=== PATIENT | female | born 1965 | race African-American/Black ===

== ENCOUNTER 2018-07-10 15:03 | Emergency (ER) | payer MEDICAID, OTHER ==
[~2018-07-10] VITALS: Ht 165.1 cm; Wt 86.0 kg
[~2018-07-10 15:03] MED LIST: AMLO2.5T45 PO; ATEN-42 PO; ATOR20TA65 PO; FERR-63 PO; HYDR25TA PO; MELO-106 PO; POTA10TA11 PO; TRAM50TA3 PO
[2018-07-10 15:14] VITALS: BP 155/91
== END 2018-07-10 17:06 | disposition left against medical advice (07) ==
LOC: ER 15:03
DX: R07.9 Chest pain, unspecified (principal); Z53.21 Procedure and treatment not carried out due to patient leaving prior to being seen by health care provider

== ENCOUNTER 2019-03-02 10:16 | Emergency (ER) | payer MEDICAID ==
[~2019-03-02] VITALS: Ht 167.6 cm; Wt 90.0 kg
[2019-03-02] MEDS ORDERED: SODIUM CHLORIDE 0.9% 1,000 ML IV ONE (11:10)
[2019-03-02 12:19] LABS: BASOPHILS % 0.9 % (0.0-2.0); EOSINOPHILS % 0.9 % (0.0-5.0); HEMOGLOBIN. 12.7 g/dL (12.0-16.0); LYMPHOCYTES % 23.7 % (20.0-50.0); MEAN CORPUSCULAR HEMOGLOBIN 30.3 pg (28.0-32.0); MEAN CORPUSCULAR VOLUME 88.5 fL (81.0-99.0); MEAN PLATELET VOLUME 9.3 fl (7.4-10.4); MONOCYTES % 5.5 % (2.0-8.0); PLATELET 293 x1000/uL (130-400); RED BLOOD CELL COUNT 4.18 mill/uL (4.2-5.4); RED CELL DISTRIBUTION WIDTH 14.1 % (11.6-14.6)
[2019-03-02 13:29] LABS: CHLORIDE 100 mEq/L (98-107)
[2019-03-02 13:34] LABS: ETHANOL BLOOD < 10 mg/dL
[2019-03-02 14:54] LABS: CLARITY URINE CLEAR (CLEAR); COLOR URINE YELLOW (YELLOW); KETONES URINE NEGATIVE (NEGATIVE); LEUKOCYTE ESTERASE URINE TRACE (NEGATIVE); NITRITE URINE NEGATIVE (NEGATIVE); OCCULT BLOOD URINE NEGATIVE (NEGATIVE); PROTEIN URINE NEGATIVE (NEGATIVE); UROBILINOGEN URINE 0.2 E.U./dL (0.2-1.0)
[2019-03-02] MEDS ORDERED: POTASSIUM CHLORIDE 20MEQ TABLET SR PO ONE (15:00)
[2019-03-02 15:08] LABS: *AMPHETAMINES SCREEN URINE NEGATIVE (NEGATIVE)
[2019-03-02 15:09] LABS: *BARBITURATES SCREEN URINE NEGATIVE (NEGATIVE)
[2019-03-02 15:10] LABS: *BENZODIAZEPINES SCREEN URINE NEGATIVE (NEGATIVE); *COCAINE SCREEN URINE NEGATIVE (NEGATIVE); CANNABINOID URINE SCREEN NEGATIVE (NEGATIVE); METHADONE URINE SCREEN NEGATIVE (NEGATIVE); OPIATES URINE SCREEN PRESUMTIVE POSITIVE (NEGATIVE); PHENCYCLIDINE URINE SCREEN NEGATIVE (NEGATIVE)
[2019-03-02 15:30] VITALS: BP 132/80
== END 2019-03-02 15:30 | disposition home or self-care (01) ==
LOC: ER 10:16 → CANBEDREQ 14:54 → ER 15:30 → CANBEDREQ 17:08
DX: E87.6 Hypokalemia (principal); R53.1 Weakness; E86.0 Dehydration; E78.00 Pure hypercholesterolemia, unspecified; I10 Essential (primary) hypertension; R73.03 Prediabetes
CPT/HCPCS: 36415; 70450; 71045; 80053; 80305; 80320; 81003; 83605; 83690; 83880; 84443; 84484; 85025; 87040; 87086; 93005; 96360; 99284; J7030; G0480